=== PATIENT | female | born 1970 | race Caucasian/White ===

== ENCOUNTER → 2016-09-20 | Outpatient (CLI) | payer BC ==
--- NOTE | 2016-09-20 15:41 | P.HPBAR ---
Bariatric H&P - History & Physicial H&P Date: 09/20/16 History & Physicial: Visit/CC: Band Adjustment fluid taken ot for vacation Patient initial contact: Initial weight: 108.862 kg Initial weight in pounds: 240.00 Height: 5 ft 1 in Initial BMI: 45.3 Last weight: Current weight: 68.096 kg Current weight in pounds: 150.00 Current BMI: 28.3 [place] body weight (based on NIH guidelines): 47.627 kg Excess body weight loss: 66.6% The patient is a 46 year-old F who presents for Bariatric Assessment. The patient presents for LAP-BAND follow-up. She is going to [facility] in several weeks. She was to have the fluid removed for band. She has not been seen in 5 years. She is maintained approximately 100 pound weight loss since her LAP- BAND surgery. Past Medical History Past Medical History: No Reported History History of Any Multi-Drug Resistant Organisms: None Reported Past Surgical History: Bariatric Surgery, Section, Tubal Ligation Additional Past Surgical History / Comment(s): lap band 2010 (?), x1, Past Anesthesia/Blood Transfusion Reactions: No Reported Reaction Additional Past Anesthesia/Blood Transfusion Reaction / Comm: no problems with anesthesia, no hx of blood transfusion Past Psychological History: No Psychological Hx Reported Smoking Status: Never smoker Past Alcohol Use History: Rare Past Drug Use History: None Reported - Past Family History Mother Family Medical History: Congestive Heart Failure (CHF), COPD Additional Family Medical History / Comment(s): at age 60 from CHF Surgical - Exam Vital Signs Temp Pulse Resp BP 98.1 F 76 16 154/73 09/20/16 15:28 09/20/16 15:28 09/20/16 15:28 09/20/16 15:28 - General well developed, no distress - Eyes PERRL - ENT normal pinna - Neck no masses - Respiratory normal expansion - Cardiovascular Rhythm: regular - Abdomen Abdomen: soft Bariatric Assessment & Plan Plan: The patient's LAP-BAND was empty. 6.5 mL removal LAP-BAND. She'll follow-up after her vacation in approximately a month. Bariatric Checklist Checklist: Plan: Checklist: EGD: 1. Hiatal hernia: 2. H. Pylori: HgbA1c: Vitamin D: Smoking: Never smoker Primary care physician referral: Psychiatry clearance: Cardiology clearance: Sleep study: Diet journal: VTE risk score: VTE risk level: Rehab needs at discharge:
[2016-09-20 15:42] VITALS: BP 154/73; PULSE 76; RESP 16; TEMP 98.1; BMI 28.3
== END | disposition home or self-care (01) ==
LOC: BARWHC3 15:01
PROVIDERS: ATTEND Surgery
DX: Z48.815 Encounter for surgical aftercare following surgery on the digestive system (principal); Z98.84 Bariatric surgery status; Z68.28 Body mass index [BMI] 28.0-28.9, adult
CPT/HCPCS: 99212

== ENCOUNTER 2017-09-11 13:22 | Inpatient (IN) | payer BC ==
[2017-09-11] MEDS ORDERED: MORPHINE SULFATE 5 MG/ML SYRINGE IV STA (13:42)
[2017-09-11] MEDS ORDERED: RX INFO: IV CONTRAST WAS GIVEN 1 EACH MISC MISCELLANE PRN (13:42)
[2017-09-11] MEDS ORDERED: SODIUM CHLORIDE 0.9% 1,000 ML IV STA (13:42)
[2017-09-11] MEDS ORDERED: IOHEXOL 350 MG/ML 25 ML BOTTLE (ORAL USE) PO PRN (13:42)
--- NOTE | 2017-09-11 13:45 | ED ---
General Adult HPI - General Chief complaint: Abdominal Pain Stated complaint: abdominal pain Time Seen by Provider: 09/11/17 13:38 Source: patient, family, RN notes reviewed Mode of arrival: ambulatory Limitations: no limitations - History of Present Illness Initial comments: Patient is a pleasant 47-year-old female presenting to the emergency department complaining of abdominal discomfort. Onset of symptoms was yesterday. Discomfort has progressed and worsened since that time. Discomfort is mostly the lower mid abdomen however does radiate somewhat towards the sides. Patient did have some urinary frequency yesterday. No dysuria. No frequency today. No fevers. No nausea vomiting. No constipation or diarrhea. Discomfort is moderate to severe. No history of similar symptoms previously. Patient does have a lap band. Patient did have the fluid drained out of it several months ago. - Related Data Home Medications Medication Instructions Recorded Confirmed Budesonide/Formoterol Fumarate 2 puff INHALATION RT-BID 09/16/16 09/11/17 [Symbicort 160-4.5 Mcg Inhaler] Phentermine HCl [Adipex-P] 37.5 mg PO QAM 09/16/16 09/11/17 Allergies Allergy/AdvReac Type Severity Reaction Status Date / Time No Known Allergies Allergy Verified 09/11/17 13:52 Review of Systems ROS Statement: Those systems with pertinent positive or pertinent negative responses have been documented in the HPI. ROS Other: All systems not noted in ROS Statement are negative. Constitutional: Denies: fever Eyes: Denies: eye pain ENT: Denies: ear pain Respiratory: Denies: dyspnea Cardiovascular: Denies: chest pain Endocrine: Denies: fatigue Gastrointestinal: Reports: abdominal pain. Denies: vomiting, diarrhea, constipation Genitourinary: Reports: frequency. Denies: dysuria Musculoskeletal: Reports: back pain Skin: Denies: rash Neurological: Denies: weakness Past Medical History Past Medical History: Asthma History of Any Multi-Drug Resistant Organisms: None Reported Past Surgical History: Bariatric Surgery, Section, Tubal Ligation Additional Past Surgical History / Comment(s): lap band 2010 , x1, Past Anesthesia/Blood Transfusion Reactions: No Reported Reaction Additional Past Anesthesia/Blood Transfusion Reaction / Comment(s): no problems with anesthesia, no hx of blood transfusion Past Psychological History: No Psychological Hx Reported Smoking Status: Never smoker Past Alcohol Use History: None Reported Past Drug Use History: None Reported - Past Family History Mother Family Medical History: Congestive Heart Failure (CHF), COPD Additional Family Medical History / Comment(s): at age 60 from CHF General Exam Limitations: no limitations General appearance: alert, in no apparent distress Head exam: Present: atraumatic Eye exam: Present: normal appearance, PERRL ENT exam: Present: normal oropharynx Neck exam: Present: normal inspection Respiratory exam: Present: normal lung sounds bilaterally Cardiovascular Exam: Present: regular rate, normal rhythm Expanded Peripheral pulses: 2+: Dorsalis Pedis (R), Dorsalis Pedis (L) GI/Abdominal exam: Present: soft, tenderness (Mild suprapubic tenderness), normal bowel sounds. Absent: distended, guarding, rebound, rigid, pulsatile mass Extremities exam: Present: normal inspection Neurological exam: Present: alert Psychiatric exam: Present: normal affect, normal mood Skin exam: Present: normal color Course Vital Signs 09/11/17 09/11/17 13:27 14:52 Temperature 96.4 F L 98.3 F Pulse Rate 78 85 Respiratory 18 18 Rate Blood Pressure 133/68 165/81 O2 Sat by Pulse 100 100 Oximetry - Reevaluation(s) Reevaluation #1: 09/11/17 15:54 Patient does not meet sepsis criteria. Medical Decision Making - Medical Decision Making Patient reevaluated and resting comfortably in bed. Case was discussed with Dr. Fontanez who will consult. Case was also discussed with Dr. boykin, who will admit for Dr. lane. Patient states she has had a tubal ligation previously. - Lab Data Result diagrams: 09/11/17 14:02 09/11/17 14:02 Lab Results 09/11/17 09/11/17 09/11/17 Range/Units 14:02 14:02 14:02 WBC 13.1 H (3.8-10.6) k/uL RBC 4.58 (3.80-5.40) m/uL Hgb 10.1 L (11.4-16.0) gm/dL Hct 34.7 (34.0-46.0) % MCV 75.8 L (80.0-100.0) fL MCH 22.2 L (25.0-35.0) pg MCHC 29.2 L (31.0-37.0) g/dL RDW 18.0 H (11.5-15.5) % Plt Count 373 (150-450) k/uL Neutrophils % 80 % Lymphocytes % 13 % Monocytes % 4 % Eosinophils % 2 % Basophils % 0 % Neutrophils # 10.4 H (1.3-7.7) k/uL Lymphocytes # 1.7 (1.0-4.8) k/uL Monocytes # 0.5 (0-1.0) k/uL Eosinophils # 0.3 (0-0.7) k/uL Basophils # 0.0 (0-0.2) k/uL Hypochromasia Marked Anisocytosis Slight Microcytosis Slight PT (9.0-12.0) sec INR (<1.2) APTT (22.0-30.0) sec Sodium 139 (137-145) mmol/L Potassium 4.0 (3.5-5.1) mmol/L Chloride 102 (98-107) mmol/L Carbon Dioxide 26 (22-30) mmol/L Anion Gap 11 mmol/L BUN 9 (7-17) mg/dL Creatinine 0.75 (0.52-1.04) mg/dL Est GFR (MDRD) Af Amer >60 (>60 ml/min/1.73 sqM) Est GFR (MDRD) Non-Af >60 (>60 ml/min/1.73 sqM) Glucose 64 L (74-99) mg/dL Calcium 9.1 (8.4-10.2) mg/dL Total Bilirubin 0.2 (0.2-1.3) mg/dL AST 16 (14-36) U/L ALT 24 (9-52) U/L Alkaline Phosphatase 74 (38-126) U/L Total Protein 7.0 (6.3-8.2) g/dL Albumin 3.8 (3.5-5.0) g/dL Amylase 66 (30-110) U/L Lipase 95 (23-300) U/L Urine Color Urine Appearance (Clear) Urine pH (5.0-8.0) Ur Specific Perley (1.001-1.035) Urine Protein (Negative) Urine Glucose (UA) (Negative) Urine Ketones (Negative) Urine Blood (Negative) Urine Nitrite (Negative) Urine Bilirubin (Negative) Urine Urobilinogen (<2.0) mg/dL Ur Leukocyte Esterase (Negative) Urine RBC (0-5) /hpf Urine WBC (0-5) /hpf Urine WBC Clumps (None) /hpf Ur Squamous Epith Cells (0-4) /hpf Urine Bacteria (None) /hpf Urine Mucus (None) /hpf Urine HCG, Qual Not Detected (Not Detectd) 09/11/17 09/11/17 Range/Units 14:02 14:02 WBC (3.8-10.6) k/uL RBC (3.80-5.40) m/uL Hgb (11.4-16.0) gm/dL Hct (34.0-46.0) % MCV (80.0-100.0) fL MCH (25.0-35.0) pg MCHC (31.0-37.0) g/dL RDW (11.5-15.5) % Plt Count (150-450) k/uL Neutrophils % % Lymphocytes % % Monocytes % % Eosinophils % % Basophils % % Neutrophils # (1.3-7.7) k/uL Lymphocytes # (1.0-4.8) k/uL Monocytes # (0-1.0) k/uL Eosinophils # (0-0.7) k/uL Basophils # (0-0.2) k/uL Hypochromasia Anisocytosis Microcytosis PT 9.6 (9.0-12.0) sec INR 1.0 (<1.2) APTT 22.7 (22.0-30.0) sec Sodium (137-145) mmol/L Potassium (3.5-5.1) mmol/L Chloride (98-107) mmol/L Carbon Dioxide (22-30) mmol/L Anion Gap mmol/L BUN (7-17) mg/dL Creatinine (0.52-1.04) mg/dL Est GFR (MDRD) Af Amer (>60 ml/min/1.73 sqM) Est GFR (MDRD) Non-Af (>60 ml/min/1.73 sqM) Glucose (74-99) mg/dL Calcium (8.4-10.2) mg/dL Total Bilirubin (0.2-1.3) mg/dL AST (14-36) U/L ALT (9-52) U/L Alkaline Phosphatase (38-126) U/L Total Protein (6.3-8.2) g/dL Albumin (3.5-5.0) g/dL Amylase (30-110) U/L Lipase (23-300) U/L Urine Color Yellow Urine Appearance Turbid H (Clear) Urine pH 6.0 (5.0-8.0) Ur Specific Perley 1.016 (1.001-1.035) Urine Protein 3+ H (Negative) Urine Glucose (UA) Negative (Negative) Urine Ketones Negative (Negative) Urine Blood Moderate H (Negative) Urine Nitrite Positive H (Negative) Urine Bilirubin Negative (Negative) Urine Urobilinogen <2.0 (<2.0) mg/dL Ur Leukocyte Esterase Large H (Negative) Urine RBC 17 H (0-5) /hpf Urine WBC >182 H (0-5) /hpf Urine WBC Clumps Many H (None) /hpf Ur Squamous Epith Cells 7 H (0-4) /hpf Urine Bacteria Many H (None) /hpf Urine Mucus Moderate H (None) /hpf Urine HCG, Qual (Not Detectd) - Radiology Data Radiology results: report reviewed (Computed tomography scan shows possible ileus or early small bowel obstruction.) Disposition Clinical Impression: Urinary tract infection, Small bowel obstruction Disposition: ADMITTED IP TO THIS [facility] Referrals: Henri House MD [Primary Care Provider] - 1-2 days Decision Time: 15:54
[2017-09-11 14:20] LABS: Anisocytosis Slight; Basophils % (A) 0 %; Eosinophils # (A) 0.3 k/uL (0-0.7); Eosinophils % (A) 2 %; HCT 34.7 % (34.0-46.0); HGB 10.1 gm/dL (11.4-16.0); Hypochromasia Marked; Lymphocytes # (A) 1.7 k/uL (1.0-4.8); Lymphocytes % (A) 13 %; MCH 22.2 pg (25.0-35.0); MCHC 29.2 g/dL (31.0-37.0); MCV 75.8 fL (80.0-100.0); Mean Platelet Volume 7.2; Microcytosis Slight; Monocytes # (A) 0.5 k/uL (0-1.0); Monocytes % (A) 4 %; Neutrophils # (A) 10.4 k/uL (1.3-7.7); Neutrophils % (A) 80 %; Platelet Count 373 k/uL (150-450); RBC 4.58 m/uL (3.80-5.40); WBC 13.1 k/uL (3.8-10.6)
[2017-09-11 14:21] LABS: Appearance,Urine Turbid (Clear); Bacteria,Urine Many /hpf; Bilirubin,Urine Negative (Negative); Blood,Urine Moderate (Negative); Color,Urine Yellow; Glucose,Urine (UA) Negative (Negative); Ketones,Urine Negative (Negative); Leukocyte Esterase,Urine Large (Negative); Mucus,Urine Moderate /hpf; Nitrite,Urine Positive (Negative); Protein,Urine 3+ (Negative); RBC,Urine 17 /hpf (0-5); Specific Gravity,Urine 1.016 (1.001-1.035); Squamous Epithelial Cell,Urine 7 /hpf (0-4); Urobilinogen,Urine <2.0 mg/dL (<2.0); WBC,Urine >182 /hpf (0-5)
[2017-09-11 14:26] LABS: Partial Thromboplastin Time 22.7 sec (22.0-30.0); Prothrombin Time 9.6 sec (9.0-12.0)
[2017-09-11 14:33] LABS: ALT 24 U/L (9-52); AST 16 U/L (14-36); Albumin 3.8 g/dL (3.5-5.0); Alkaline Phosphatase 74 U/L (38-126); Amylase 66 U/L (30-110); Anion Gap 11 mmol/L; Blood Urea Nitrogen 9 mg/dL (7-17); Calcium 9.1 mg/dL (8.4-10.2); Carbon Dioxide 26 mmol/L (22-30); Chloride 102 mmol/L (98-107); Glucose 64 mg/dL (74-99); Lipase 95 U/L (23-300); Sodium 139 mmol/L (137-145); Total Bilirubin 0.2 mg/dL (0.2-1.3)
[2017-09-11] MEDS ORDERED: cefTRIAXone IN SWFI 1,000 MG/10 ML SYRINGE IVP STA (14:41)
--- NOTE | 2017-09-11 15:11 | CT ---
EXAMINATION TYPE: CT abdomen pelvis w con DATE OF EXAM: 09/11/2017 HISTORY: Abdominal pain CT DLP: 1010.6mGycm Automated Exposure Control for Dose Reduction was Utilized. CONTRAST: CT scan of the abdomen and pelvis is performed with IV Contrast, patient injected with 100 mL of Omni paque 300. COMPARISON: None. FINDINGS: LUNG BASES: No significant abnormality is appreciated. LIVER/GB: No significant abnormality is appreciated. No cholelithiasis. PANCREAS: No significant abnormality is seen. No ductal dilatation. SPLEEN: No significant abnormality is seen. No splenomegaly. ADRENALS: No significant abnormality is seen. 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 There is uroepithelia l thickening within the left renal pelvis likely reactive as it is adjacent to the minimally dilated left mid abdominal loops of small bowel. This is seen on series 3 image 33. No hydronephrosis. The kn ees enhance symmetrically. BOWEL: Gastric lap band is seen at the gastroesophageal junction appears appropriately placed, satisf actory in position. No proximal esophageal dilation. The stomach is nondistended although there is ci rcumferential gastric thickening of the rugae up to 1.4 cm. Mild small bowel dilatation of the left u pper quadrant involving the proximal jejunum. This measures up to 3.5 cm and likely represents ileus. Decrease in caliber without focal beaking is seen within the left midabdomen on series 3 image 39 th rough 42. UTERUS/ADNEXA: Horseshoe-shaped density structure near the right fallopian tube may represent a surgi sara clip or alternatively calcification within the ovary. The appendix is thought to be coiled adjace nt to the cecum superior to this. Uterus is bulky in size and somewhat heterogenous, possibly relatin g to underlying uterine leiomyomas. None are well visualized or circumscribed on this exam. Follicula r changes are seen in the ovaries. LYMPH NODES: No greater than 1cm abdominal or pelvic lymph nodes are appreciated. OSSEOUS STRUCTURES: Osseous structures are intact. Sclerotic foci are seen within the pelvis and lumb ar spine, likely bone islands. IMPRESSION: 1. Mildly dilated loops of small bowel within the left mid abdomen in the involving the proximal jeju num with decreased caliber in the left mid abdomen without focal beaking to suggest transition point or total collapse of the more distal bowel loops. Therefore ileus or incomplete or early small bowel obstruction are favored. 2. Horseshoe shaped density around the right ovary. Correlate for surgical history of fallopian tube ligation. If no corresponding surgical history this could represent an ovarian calcification and poss ibly a dermoid. Pelvic ultrasound could be performed for further evaluation. 3. Unremarkable placement of the gastric lap band although there is diffuse rugal fold thickening of the gastric body, fundus and antrum most commonly relating to gastritis..
[2017-09-11] MEDS ORDERED: MORPHINE SULFATE 2 MG/ML SYRINGE IV PRN (15:54)
[2017-09-11] MEDS ORDERED: NALOXONE 0.4 MG/ML 1 ML VIAL IV PRN (15:54)
[2017-09-11 17:00] VITALS: BMI 34.0
[2017-09-11] MEDS: SODIUM CHLORIDE 0.9% 1,000 ML IV SCH (17:11)
--- NOTE | 2017-09-11 20:19 | HP ---
HISTORY AND PHYSICAL DATE OF ADMISSION: 09/11/17 PRESENT COMPLAINT: Lower abdominal pain. HISTORY OF PRESENTING COMPLAINT: Pleasant 47 -year-old patient of Dr. House. The patient has a history of asthma, stable. The patient last night started noticing lower abdominal discomfort. There was no nausea, vomiting. No obvious fever. Last bowel movement was yesterday. The patient this morning, actually had pancakes. Continued to have lower abdominal pain and decided to come in. Normally has a bowel movement every day or every other day. In the ER exam of the abdomen per CT scan was questioning bowel obstruction. Hence patient admitted for the same. Also found to have UTI. REVIEW OF SYSTEMS: Constitutional: Tired. HEENT none. Respiratory: Baseline occasional wheezing. Cardiovascular none. Gastrointestinal as above. Genitourinary as above. Musculoskeletal none. Dermatological and hematologic, lymphatic none. Psychiatry none. Neurological none. PAST MEDICAL HISTORY: Asthma. PAST SURGICAL HISTORY: Bariatric surgery, tubal ligation, lap banding 2009. SOCIAL HISTORY: Does not smoke or drink alcohol. FAMILY HISTORY: Congestive heart failure, COPD. HOME MEDICATIONS: Adipex 37.5 p.o. daily and Symbicort 160/4.5, 2 puffs b.i.d. ALLERGIES: None. PHYSICAL EXAMINATION: Vital signs on presentation: Temperature 96.4, pulse 70, respiratory 18, blood pressure 133/68, pulse ox 100% on room air. General appearance: Well built, BMI 34. Lying in bed, not in distress. Eyes: Pupils equal. Conjunctivae normal. HEENT: Oral cavity normal. Neck JVD not raised. Mass not palpable. Respiratory effort. LUNGS: Diminished breath sounds. Cardiovascular 1st and 2nd sounds normal. No edema. Abdomen: Some lower abdominal mild tenderness. No guarding, rigidity. Liver and spleen not palpable. Bowel sounds are present. Lymphatics: No lymph nodes palpable in the neck and axilla. PSYCHIATRY: Alert and oriented x3. Mood and affect normal. Neurological: Pupils equal. Cranial nerves grossly intact. Power and sensation grossly intact. INVESTIGATIONS: White count 13.1, hemoglobin 10.1, MCV, 35.8, potassium 4.0. BUN and creatinine is normal. UA positive for nitrites, leukoesterase, WBCs. CT scan of the abdomen and pelvis shows a gastric lap band, mild small bowel dilation for left upper quadrant. ASSESSMENT: 1. Acute cystitis/urinary tract infection with lower abdominal tenderness. 2. Possible early small-bowel ileus because of the latter. 3. Moderate persistent asthma. 4. Abnormal radiological finding in the right adnexa. PLAN: Patient is put on IV ceftriaxone. Give the patient clear liquids. No nausea, vomiting. General surgery was consulted. Will also get a ACCOUNT RELATIONSHIP MANAGER opinion in view of the CT scan finding of the right adnexa. Care was discussed with the patient. Questions were answered. The patient will be put on bronchodilators. Copy to Dr. House. MMMAIKOLL / IJN: [id number] /
[2017-09-11] MEDS: BUDESONIDE 0.5 MG/2 ML NEBU INHALATION SCH (20:27)
[2017-09-11] MEDS: ALBUTEROL NEBULIZED 2.5 MG/3 ML INHALATION SCH (20:27)
[2017-09-11] MEDS: ENOXAPARIN 40 MG/0.4 ML SYRINGE SQ SCH (23:53)
[2017-09-11] MEDS: cefTRIAXone IN SWFI 1,000 MG/10 ML SYRINGE IVP SCH (23:54)
[2017-09-12 07:11] LABS: Anisocytosis Slight; Basophils % (A) 0 %; Eosinophils # (A) 0.3 k/uL (0-0.7); Eosinophils % (A) 3 %; HCT 31.3 % (34.0-46.0); HGB 8.9 gm/dL (11.4-16.0); Hypochromasia Marked; Lymphocytes # (A) 2.1 k/uL (1.0-4.8); Lymphocytes % (A) 24 %; MCH 21.8 pg (25.0-35.0); MCHC 28.4 g/dL (31.0-37.0); MCV 76.6 fL (80.0-100.0); Mean Platelet Volume 6.7; Microcytosis Slight; Monocytes # (A) 0.4 k/uL (0-1.0); Monocytes % (A) 5 %; Neutrophils # (A) 5.7 k/uL (1.3-7.7); Neutrophils % (A) 65 %; Platelet Count 335 k/uL (150-450); RBC 4.08 m/uL (3.80-5.40); RDW 16.5 % (11.5-15.5); WBC 8.8 k/uL (3.8-10.6)
--- NOTE | 2017-09-12 08:12 | XR ---
EXAMINATION TYPE: XR abdomen 2V DATE OF EXAM: 09/12/2017 CLINICAL DATA: 47-year-old female questionable small bowel obstruction, follow-up exam, [facility] COMPARISON: CT 09/11/2017 FINDINGS: Lung bases are clear. A lap band device is present. Scattered colonic air is present throughout with mild stool on the right. No dilated small bowel loop s or differential air-fluid levels are seen. Left-sided pelvic phleboliths. IMPRESSION: The overall bowel gas pattern at this time is nonobstructive. Scattered colonic air and stool are pre sent without any differential air-fluid levels. No free air.
[2017-09-12] MEDS: BUDESONIDE 0.5 MG/2 ML NEBU INHALATION SCH ×2 (08:23→20:13)
[2017-09-12] MEDS: ALBUTEROL NEBULIZED 2.5 MG/3 ML INHALATION SCH ×4 (08:24→20:13)
--- NOTE | 2017-09-12 08:29 | P.OBCN ---
History of Present Illness Consult date: 09/12/17 Requesting physician: Gabriel Conner Reason for consult: ovarian cyst Chief complaint: Abdominal pain History of present illness: This is a 47-year-old female that presented to the emergency department with complaints of abdominal pain. CAT scan was obtained and a horseshoe density was noted on the ovary via CAT scan. Patient states she did have a tubal ligation about 20 years ago after her was completed with Dr. Templeton. She did have an ultrasound done this morning per my request which on initial review of the images to me reveals a simple right ovarian cyst. Pt states her menses are regular q month with a heavy flow. she notes she has on occasion skipped a month. Review of Systems Constitutional: Reports fatigue, Denies chills, Denies fever Gastrointestinal: Reports abdominal pain Genitourinary: Reports dysuria Menstruation: Reports period heavy Past Medical History Past Medical History: Asthma History of Any Multi-Drug Resistant Organisms: None Reported Past Surgical History: Bariatric Surgery, Section, Tubal Ligation Additional Past Surgical History / Comment(s): lap band 2010 , x1, Past Anesthesia/Blood Transfusion Reactions: No Reported Reaction Additional Past Anesthesia/Blood Transfusion Reaction / Comm: no problems with anesthesia, no hx of blood transfusion Past Psychological History: No Psychological Hx Reported Smoking Status: Never smoker Past Alcohol Use History: None Reported Past Drug Use History: None Reported - Past Family History Mother Family Medical History: Congestive Heart Failure (CHF), COPD Additional Family Medical History / Comment(s): at age 60 from CHF Medications and Allergies Home Medications Medication Instructions Recorded Confirmed Type Budesonide/Formoterol Fumarate 2 puff INHALATION RT-BID 09/16/16 09/11/17 History [Symbicort 160-4.5 Mcg Inhaler] Phentermine HCl [Adipex-P] 37.5 mg PO QAM 09/16/16 09/11/17 History Allergies Allergy/AdvReac Type Severity Reaction Status Date / Time No Known Allergies Allergy Verified 09/11/17 13:52 Exam Osteopathic Statement: *. No significant issues noted on an osteopathic structural exam other than those noted in the History and Physical/Consult. - Vital Signs Vital signs: Vital Signs Temp Pulse Pulse Resp BP BP Pulse Ox 09/12/17 07:00 98.4 F 71 16 136/78 96 09/12/17 06:21 84 16 09/12/17 03:12 16 09/12/17 01:50 98.3 F 84 16 130/77 100 09/11/17 20:43 82 09/11/17 20:29 80 09/11/17 16:15 98.5 F 82 18 155/75 100 09/11/17 14:52 98.3 F 85 18 165/81 100 09/11/17 13:27 96.4 F L 78 18 133/68 100 Intake and Output 09/11/17 09/12/17 09/12/17 22:59 06:59 14:59 Other: Voiding Method Toilet Toilet Weight 81.647 kg Results Result Diagrams: 09/12/17 06:43 09/11/17 14:02 Abnormal Lab Results - Last 24 Hours (Table) 09/11/17 09/11/17 09/11/17 Range/Units 14:02 14:02 14:02 WBC 13.1 H (3.8-10.6) k/uL Hgb 10.1 L (11.4-16.0) gm/dL Hct (34.0-46.0) % MCV 75.8 L (80.0-100.0) fL MCH 22.2 L (25.0-35.0) pg MCHC 29.2 L (31.0-37.0) g/dL RDW 18.0 H (11.5-15.5) % Neutrophils # 10.4 H (1.3-7.7) k/uL Glucose 64 L (74-99) mg/dL Urine Appearance Turbid H (Clear) Urine Protein 3+ H (Negative) Urine Blood Moderate H (Negative) Urine Nitrite Positive H (Negative) Ur Leukocyte Esterase Large H (Negative) Urine RBC 17 H (0-5) /hpf Urine WBC >182 H (0-5) /hpf Urine WBC Clumps Many H (None) /hpf Ur Squamous Epith Cells 7 H (0-4) /hpf Urine Bacteria Many H (None) /hpf Urine Mucus Moderate H (None) /hpf 09/12/17 Range/Units 06:43 WBC (3.8-10.6) k/uL Hgb 8.9 L (11.4-16.0) gm/dL Hct 31.3 L (34.0-46.0) % MCV 76.6 L (80.0-100.0) fL MCH 21.8 L (25.0-35.0) pg MCHC 28.4 L (31.0-37.0) g/dL RDW 16.5 H (11.5-15.5) % Neutrophils # (1.3-7.7) k/uL Glucose (74-99) mg/dL Urine Appearance (Clear) Urine Protein (Negative) Urine Blood (Negative) Urine Nitrite (Negative) Ur Leukocyte Esterase (Negative) Urine RBC (0-5) /hpf Urine WBC (0-5) /hpf Urine WBC Clumps (None) /hpf Ur Squamous Epith Cells (0-4) /hpf Urine Bacteria (None) /hpf Urine Mucus (None) /hpf Microbiology - Last 24 Hours (Table) 09/11/17 14:02 Urine Culture - Preliminary Urine,Voided Assessment and Plan (1) Ovarian cyst Narrative/Plan: Will await final read of the ultrasound that was done this morning. And further recommendations to follow if necessary. Most likely this is something that can be followed up as an outpatient. This is discussed with the patient this am and she states understanding and will Fu with Dr. Templeton for continued care. Current Visit: Yes Status: Acute Code(s): N83.209 - UNSPECIFIED OVARIAN CYST , UNSPECIFIED SIDE SNOMED Code(s): 75056254 (2) Small bowel obstruction Current Visit: Yes Status: Acute Code(s): K56.609 - UNSP INTESTNL OBST, UNSP TO PARTIAL VERSUS COMPLETE OBST SNOMED Code(s): 305578373 (3) Urinary tract infection Current Visit: Yes Status: Acute Code(s): N39.0 - URINARY TRACT INFECTION, SITE NOT SPECIFIED SNOMED Code(s): 38285338
--- NOTE | 2017-09-12 08:46 | US ---
EXAMINATION TYPE: US transvaginal DATE OF EXAM: 09/12/2017 COMPARISON: CT 09/11/2017 CLINICAL HISTORY: 47-year-old female density of right ovary found on CT. Abnormal CT, patient admitte d for abdominal pain and possible bowel obstruction TECHNIQUE: Transvaginal (TV) Date of LMP: 08/29/2017 Findings: Uterus: Anteverted measuring 13.9 x 7.4 x 7.6 cm. Heterogeneous echotexture with cervical nabothian cysts. A more heterogeneous area along the anterior uterine fundus measures 3.3 x 4.3 x 5.0 cm, possi ble focal fibroid. Endometrial Stripe: 1.5 cm, upper limits of normal which correspond to the late secretory phase. Right Ovary: 3.6 x 3.0 x 2.8 cm with a 30 x 25 x 24 mm cysts that appears relatively simple in appea genesis. Left ovary cannot be visualized. No evident adnexal abnormality or cul-de-sac free fluid. No suspicious calcification identified. CLINICAL ASSOC NOTES: Abnormality seen on CT unable to be visualized by US IMPRESSION: 1. Possible focal fibroid measuring 5 cm along the anterior uterine fundus. 2. Endometrial stripe thickening to the upper limits of normal (1.5 cm), should correspond to the lat e secretory phase of the menstrual cycle. 3. Left ovary could not be visualized. 4. Right ovary shows a 3.0 cm dominant follicle or functional cyst. The questioned abnormality on CT could not be identified.
[2017-09-12] MEDS ORDERED: PANTOPRAZOLE 40 MG/10 ML VIAL IV SCH (09:00)
[2017-09-12] MEDS: cefTRIAXone IN SWFI 1,000 MG/10 ML SYRINGE IVP SCH ×2 (10:10→19:58)
[2017-09-12] MEDS: ACETAMINOPHEN TAB 325 MG TAB PO PRN ×2 (10:44→22:29)
--- NOTE | 2017-09-12 11:07 | P.GSCN ---
<Tere Leos - Last Filed: 09/12/17 10:53> History of Present Illness Consult date: 09/12/17 History of present illness: 47-year-old female seen for surgical eval at the request of the attending for abdominal pain. CAT scan of the abdomen pelvis obtained in the emergency room showed mildly dilated loops of small bowel possible ileus or incomplete early small bowel obstruction. Patient gives a history of having a lap band surgery done in 2009. presented on the day of admission to the emergency room with a chief complaint of developing abdominal discomfort. stated there was no nausea or vomiting. Did not have fever chills. Last bowel movement was a day before. Patient stated the incident occurred after she was eating pancakes. Patient states she normally has a bowel movement every day. Has not had prior episodes of abdominal pain like this in the past. Also noted in the emergency room urinalysis suggestive of a UTI. Currently on exam patient states there is no abdominal pain passing gas but has not had a bowel movement. Abdominal x- ray done this morning scattered stool present no free air noted no dilated small bowel loops patient is not certain if she has ever had a colonoscopy or an EGD in the past Additionally patient has been followed by OVERHEAD IRRIGATOR. Ultrasound done shows evidence of a right ovarian cyst Past medical history asthma. Past surgical history of , tubal ligation , LAP-BAND Review of Systems Essentially unremarkable except as mentioned in the present illness Past Medical History Past Medical History: Asthma History of Any Multi-Drug Resistant Organisms: None Reported Past Surgical History: Bariatric Surgery, Section, Tubal Ligation Additional Past Surgical History / Comment(s): lap band 2010 , x1, Past Anesthesia/Blood Transfusion Reactions: No Reported Reaction Additional Past Anesthesia/Blood Transfusion Reaction / Comm: no problems with anesthesia, no hx of blood transfusion Past Psychological History: No Psychological Hx Reported Smoking Status: Never smoker Past Alcohol Use History: None Reported Past Drug Use History: None Reported - Past Family History Mother Family Medical History: Congestive Heart Failure (CHF), COPD Additional Family Medical History / Comment(s): at age 60 from CHF Medications and Allergies Home Medications Medication Instructions Recorded Confirmed Type Budesonide/Formoterol Fumarate 2 puff INHALATION RT-BID 09/16/16 09/11/17 History [Symbicort 160-4.5 Mcg Inhaler] Phentermine HCl [Adipex-P] 37.5 mg PO QAM 09/16/16 09/11/17 History Allergies Allergy/AdvReac Type Severity Reaction Status Date / Time No Known Allergies Allergy Verified 09/11/17 13:52 Surgical - Exam Vital Signs Temp Pulse Resp BP Pulse Ox 96.4 F L 78 18 133/68 100 09/11/17 13:27 09/11/17 13:27 09/11/17 13:27 09/11/17 13:27 09/11/17 13:27 GENERAL APPEARANCE: 47-year-old female patient is alert, oriented, in no acute distress. Chief complaint this morning headache VITAL SIGNS: Reviewed HEENT: Head is normocephalic and atraumatic. Pupils are equal and reactive. The nares are patent. Oropharynx is clear without lesions. NECK: Supple without lymphadenopathy. Traches midline. HEART: S1, S2. Regular rate and rhythm. No murmur noted denying chest pain LUNGS: No crackles or wheezes are heard. On room air adequate air entry ABDOMEN: Soft, mild tenderness to the bilateral lower abdominal wall nondistended with good bowel sounds. No peritoneal signs. No palpable organomegaly or masses. Reports no nausea vomiting states passing gas no stool urinating no difficulty states abdominal discomfort has resolved EXTREMITIES: Normal skin color and turgor. No cyanosis, rash, ulceration, clubbing or edema. Radial pedal pulses are 2/4 bilaterally. NEUROLOGICAL: No focal deficits. Strength and sensation are grossly intact. Results - Labs 09/12/17 06:43 09/11/17 14:02 Abnormal Lab Results - Last 24 Hours (Table) 09/11/17 09/11/17 09/11/17 Range/Units 14:02 14:02 14:02 WBC 13.1 H (3.8-10.6) k/uL Hgb 10.1 L (11.4-16.0) gm/dL Hct (34.0-46.0) % MCV 75.8 L (80.0-100.0) fL MCH 22.2 L (25.0-35.0) pg MCHC 29.2 L (31.0-37.0) g/dL RDW 18.0 H (11.5-15.5) % Neutrophils # 10.4 H (1.3-7.7) k/uL Glucose 64 L (74-99) mg/dL Urine Appearance Turbid H (Clear) Urine Protein 3+ H (Negative) Urine Blood Moderate H (Negative) Urine Nitrite Positive H (Negative) Ur Leukocyte Esterase Large H (Negative) Urine RBC 17 H (0-5) /hpf Urine WBC >182 H (0-5) /hpf Urine WBC Clumps Many H (None) /hpf Ur Squamous Epith Cells 7 H (0-4) /hpf Urine Bacteria Many H (None) /hpf Urine Mucus Moderate H (None) /hpf 09/12/17 Range/Units 06:43 WBC (3.8-10.6) k/uL Hgb 8.9 L (11.4-16.0) gm/dL Hct 31.3 L (34.0-46.0) % MCV 76.6 L (80.0-100.0) fL MCH 21.8 L (25.0-35.0) pg MCHC 28.4 L (31.0-37.0) g/dL RDW 16.5 H (11.5-15.5) % Neutrophils # (1.3-7.7) k/uL Glucose (74-99) mg/dL Urine Appearance (Clear) Urine Protein (Negative) Urine Blood (Negative) Urine Nitrite (Negative) Ur Leukocyte Esterase (Negative) Urine RBC (0-5) /hpf Urine WBC (0-5) /hpf Urine WBC Clumps (None) /hpf Ur Squamous Epith Cells (0-4) /hpf Urine Bacteria (None) /hpf Urine Mucus (None) /hpf Microbiology - Last 24 Hours (Table) 09/11/17 14:02 Urine Culture - Preliminary Urine,Voided Diabetes panel 09/11/17 Range/Units 14:02 Sodium 139 (137-145) mmol/L Potassium 4.0 (3.5-5.1) mmol/L Chloride 102 (98-107) mmol/L Carbon Dioxide 26 (22-30) mmol/L BUN 9 (7-17) mg/dL Creatinine 0.75 (0.52-1.04) mg/dL Glucose 64 L (74-99) mg/dL Calcium 9.1 (8.4-10.2) mg/dL AST 16 (14-36) U/L ALT 24 (9-52) U/L Alkaline Phosphatase 74 (38-126) U/L Total Protein 7.0 (6.3-8.2) g/dL Albumin 3.8 (3.5-5.0) g/dL Calcium panel 09/11/17 Range/Units 14:02 Calcium 9.1 (8.4-10.2) mg/dL Albumin 3.8 (3.5-5.0) g/dL Pituitary panel 09/11/17 Range/Units 14:02 Sodium 139 (137-145) mmol/L Potassium 4.0 (3.5-5.1) mmol/L Chloride 102 (98-107) mmol/L Carbon Dioxide 26 (22-30) mmol/L BUN 9 (7-17) mg/dL Creatinine 0.75 (0.52-1.04) mg/dL Glucose 64 L (74-99) mg/dL Calcium 9.1 (8.4-10.2) mg/dL Adrenal panel 09/11/17 Range/Units 14:02 Sodium 139 (137-145) mmol/L Potassium 4.0 (3.5-5.1) mmol/L Chloride 102 (98-107) mmol/L Carbon Dioxide 26 (22-30) mmol/L BUN 9 (7-17) mg/dL Creatinine 0.75 (0.52-1.04) mg/dL Glucose 64 L (74-99) mg/dL Calcium 9.1 (8.4-10.2) mg/dL Total Bilirubin 0.2 (0.2-1.3) mg/dL AST 16 (14-36) U/L ALT 24 (9-52) U/L Alkaline Phosphatase 74 (38-126) U/L Total Protein 7.0 (6.3-8.2) g/dL Albumin 3.8 (3.5-5.0) g/dL Assessment and Plan Assessment: Physical exam Present on admission abdominal pain possibly due to an early small bowel obstruction History of a lap band bariatric surgery for weight loss 2009 Present on admission UTI symptomatic Moderate persistent asthma CAT scan of the abdomen pelvis obtained in the emergency room show gastric lap band with mild small bowel dilatation possible early small bowel obstruction Obesity BMI 34 CAT scan abdomen and pelvis ovarian cyst right ovary OVERHEAD IRRIGATOR following Plan IV fluid for hydration Pain control DVT and GI prophylaxis No evidence of an acute surgical abdomen at this time Will follow surgical course closely addressing issues as they arise Continue clear liquid diet Defer to the attending for further medical issues When medically stable patient would benefit from a colonoscopy could be arranged in the outpatient setting follow-up surgical visit Consult dictated for Dr. vance The above impression and plan of care have been discussed and directed by signing physician. Tere Leos nurse practitioner acting as scribe for signing physician. <Apolinar Vance - Last Filed: 09/12/17 15:31> Surgical - Exam Vital Signs Temp Pulse Resp BP Pulse Ox 96.4 F L 78 18 133/68 100 09/11/17 13:27 09/11/17 13:27 09/11/17 13:27 09/11/17 13:27 09/11/17 13:27 Results - Labs 09/12/17 06:43 09/11/17 14:02 Abnormal Lab Results - Last 24 Hours (Table) 09/12/17 Range/Units 06:43 Hgb 8.9 L (11.4-16.0) gm/dL Hct 31.3 L (34.0-46.0) % MCV 76.6 L (80.0-100.0) fL MCH 21.8 L (25.0-35.0) pg MCHC 28.4 L (31.0-37.0) g/dL RDW 16.5 H (11.5-15.5) % Microbiology - Last 24 Hours (Table) 09/11/17 14:02 Urine Culture - Preliminary Urine,Voided Assessment and Plan Plan: The patient feels better. She's had flatus. She wishes to go home. On exam her lesser stable. Her abdomen soft. Patient may be discharged home per medicine. She'll follow-up with myself as outpatient.
--- NOTE | 2017-09-12 17:05 | PN ---
PROGRESS NOTE DATE OF SERVICE: 09/12/17. ATTENDING NOTE: Patient seen and examined by me. I discussed with nurse practitioner, Nerisparmjit. Patient admitted with acute cystitis. Has passed flatus. No bowel movement. PHYSICAL EXAMINATION: On examination, afebrile, pulse 71, respiratory rate 16, blood pressure 130/78. ABDOMEN: Soft, nontender. Bowel sounds are present. INVESTIGATION: White count 8.8, hemoglobin 8.9. Cultures are pending. ASSESSMENT: 1. Acute cystitis, urinary tract infection with some clinical response. 2. Early small-bowel ileus. Patient has had flatus but no actual bowel movement. PLAN: ENTRY LEVEL MACHINE OPERATOR is the final determination of . The patient is encouraged to ambulate. I am hoping once the patient has a bowel movement she can then go home. PRUDENCIO / NICKIEN: [id number] /
[2017-09-12] MEDS: SODIUM CHLORIDE 0.9% 1,000 ML IV SCH ×2 (17:22→22:42)
[2017-09-12] MEDS: PATIENT'S OWN MED (Phentermine Hcl [Adipex-P] 37.5 MG) PO SCH (17:23)
--- NOTE | 2017-09-12 19:51 | P.PN ---
Progress Note - Text Progress Note Date: 09/12/17 DATE OF SERVICE: 09/12/2017 PRESENTING COMPLAINT: Lower abdominal pain HISTORY OF PRESENT ILLNESS: 47-year-old female who noticed to have she was having lower abdominal discomfort no nausea no vomiting no obvious fever. Last bowel movement was yesterday. Pain persisted throughout the day and patient decided to come in. Imaging in the emergency department revealed possible bowel obstruction admitted for the same also found to have a UTI. INTERVAL HISTORY: 09/12/2017: Lying in bed appears comfortable. No acute overnight events, no further nausea and vomiting PROOF MACHINE OPERATOR SUPERVISOR evaluated the patient. Surgical ASSISTANT FLOOR COVERING PRINTER evaluated the patient advanced her diet. Tolerating her diet of clear liquids. Walking around in the room. States her pain is much improved. Has not yet had a bowel movement. No longer has any abdominal pain anxious to go home. REVIEW OF SYSTEMS: Done for constitutional ,cardiovascular, GI, pulmonary with relevant findings as above. CURRENT MEDICATIONS Tylenol, Ventolin, Pulmicort, Rocephin, Lovenox, Narcan, normal saline. PHYSICAL EXAM VITAL SIGNS: Temperature 98.4, pulse 71, respiratory rate 16, blood pressure 136/78, oxygen saturation 96% GENERAL APPEARANCE: Lying in bed, not in distress. HEENT: Normocephalic, Pupils equal. Conjunctiva normal. JVD not raised. Mass not palpable.: RESPIRATORY: Respiratory effort normal. Lungs diminished to auscultation. CARDIOVASCULAR: First and second sounds normal. No edema. ABDOMEN: Soft. Liver and spleen not palpable. No tenderness. No mass palpable. PSYCHIATRY: Alert and oriented x3. Mood and affect normal. INVESTIGATIONS: LABS: Hemoglobin 8.9, Transvaginal ultrasound: Possible focal fibroid measuring 5 cm along the anterior uterine fundus, and the medial stripe thickening to the upper limits of normal ASSESSMENT: -Acute cystitis/urinary tract infection with lower abdominal tenderness, improving -Possible early bowel ileus because of the latter, improving -Moderate persistent asthma. -Abnormal radiologic finding in the right adnexa PLAN: Continue on IV ceftriaxone tolerating clear liquids no nausea or vomiting at this point. General surgery is signed off the case and PROOF MACHINE OPERATOR SUPERVISOR recommended outpatient follow-up. Encouraged patient to be up and about discharge planning for the next 24 hours,provided the patient is able to move her bowels and plan of care discussed with the patient bedside and she is in agreement. We'll follow closely. ASSISTANT FLOOR COVERING PRINTER statement: Patient was seen and examined by nurse practitioner Radha Richard and all elements of the case discussed with attending Dr. Mcfarland
[2017-09-12] MEDS: ENOXAPARIN 40 MG/0.4 ML SYRINGE SQ SCH (19:58)
[2017-09-13] MEDS: SODIUM CHLORIDE 0.9% 1,000 ML IV SCH ×2 (00:37→05:38)
[2017-09-13] MEDS: BUDESONIDE 0.5 MG/2 ML NEBU INHALATION SCH (08:09)
[2017-09-13] MEDS: ALBUTEROL NEBULIZED 2.5 MG/3 ML INHALATION SCH ×2 (08:09→11:58)
[2017-09-13] MEDS: PATIENT'S OWN MED (Phentermine Hcl [Adipex-P] 37.5 MG) PO SCH (08:54)
[2017-09-13] MEDS: cefTRIAXone IN SWFI 1,000 MG/10 ML SYRINGE IVP SCH (08:57)
[2017-09-13 09:31] VITALS: RESP 16; TEMP 97.6
[2017-09-13 12:03] VITALS: BP 143/82
[2017-09-13 12:09] VITALS: PULSE 78
--- NOTE | 2017-09-13 22:35 | DS ---
DISCHARGE SUMMARY DATE OF ADMISSION: 09/11/2017. DATE OF DISCHARGE: 09/13/2017 FINAL DIAGNOSES: 1. Acute cystitis. 2. Urinary tract infection. 3. Possibly early small bowel ileus. 4. Moderate persistent asthma. 5. Possible focal fibroid in the uterus. HOSPITAL COURSE: This patient presented with lower abdominal pain felt to be from cystitis. Urine culture did confirm E coli. The patient had early small bowel obstruction that actually resolved. Today patient tolerated diet, had a bowel movement; up and about. On examination, lungs are clear. Abdomen is soft, nontender. CONSULTATIONS: 1. Dr. Lizama from General Surgery. 2. Dr. Mcgarry from [facility]. She will see the patient as an outpatient. Care was discussed with the patient. DISCHARGE MEDICATIONS: 1. Symbicort 160/4.5 two puffs b.i.d. 2. Adipex-P 37.5 p.o. daily. 3. Ceftin 500 mg p.o. b.i.d.; 4 tablets. Follow up with Dr. Templeton in 2 weeks, Dr. House on 09/15/2017, Dr. Lizama on 09/20/2017. MMODL / IJN: [id number] /
== END 2017-09-13 16:26 | disposition home or self-care (01) | DRG 389 ==
LOC: EC 13:22 → 3SUR 15:54
PROVIDERS: ADMIT Hospitalist; ATTEND Hospitalist
DX: K56.7 Ileus, unspecified (principal); N30.00 Acute cystitis without hematuria; J45.40 Moderate persistent asthma, uncomplicated; N83.291 Other ovarian cyst, right side; D25.9 Leiomyoma of uterus, unspecified; Z79.51 Long term (current) use of inhaled steroids; Z79.899 Other long term (current) drug therapy; Z98.84 Bariatric surgery status; Z82.49 Family history of ischemic heart disease and other diseases of the circulatory system
CPT/HCPCS: 36415; 74019; 74177; 76830; 80053; 81001; 81025; 82150; 83690; 85025; 85610; 85730; 87077; 87086; 87186; 94640; 96361; 96374; 96375; 99285

== ENCOUNTER → 2018-10-16 | Outpatient (CLI) | payer BC ==
[2018-10-16 14:10] VITALS: BP 153/88; PULSE 80; RESP 16; TEMP 98.2; BMI 38.0
--- NOTE | 2018-10-23 16:10 | P.HPBAR ---
Bariatric H&P - History & Physicial H&P Date: 10/16/18 History & Physicial: Visit/CC: BAND FILL Patient initial contact: Initial weight: 108.862 kg Initial weight in pounds: 240.00 Height: 5 ft 1 in Initial BMI: 45.3 Last weight: Current weight: 91.172 kg Current weight in pounds: 201.00 Current BMI: 38.0 [place] body weight (based on NIH guidelines): 47.627 kg Excess body weight loss: 28.8% The patient is a 48 year-old F who presents for Bariatric Assessment. Patient presents today for lab band follow up. She is requesting a fill of her band. Past Medical History Past Medical History: Asthma History of Any Multi-Drug Resistant Organisms: None Reported Past Surgical History: Bariatric Surgery, Section, Tubal Ligation Additional Past Surgical History / Comment(s): lap band 2009 , x1, Past Anesthesia/Blood Transfusion Reactions: No Reported Reaction Additional Past Anesthesia/Blood Transfusion Reaction / Comm: no problems with anesthesia, no hx of blood transfusion Smoking Status: Never smoker - Past Family History Mother Family Medical History: Congestive Heart Failure (CHF), COPD Additional Family Medical History / Comment(s): at age 60 from CHF Surgical - Exam Vital Signs Temp Pulse Resp BP 98.2 F 80 16 153/88 10/16/18 14:08 10/16/18 14:08 10/16/18 14:08 10/16/18 14:08 - General well developed, no distress - Eyes PERRL - ENT normal pinna - Neck no masses - Respiratory normal expansion - Cardiovascular Rhythm: regular - Abdomen Abdomen: soft, non tender Bariatric Assessment & Plan Plan: Patient's lap band was adjusted. She had 3 mL added to her band. She is able to water without difficulty. She'll follow-up in 4 weeks. Bariatric Checklist Checklist: Plan: Checklist: EGD: 1. Hiatal hernia: 2. H. Pylori: HgbA1c: Vitamin D: Smoking: Never smoker Primary care physician referral: [facility] Psychiatry clearance: Cardiology clearance: Sleep study: Diet journal: VTE risk score: VTE risk level: Rehab needs at discharge:
== END | disposition home or self-care (01) ==
LOC: BARWHC3 13:29
PROVIDERS: ATTEND Surgery
DX: Z46.51 Encounter for fitting and adjustment of gastric lap band (principal); Z98.84 Bariatric surgery status; Z98.51 Tubal ligation status; Z98.890 Other specified postprocedural states
CPT/HCPCS: 99212

== ENCOUNTER 2022-06-11 12:23 | Emergency (ER) | payer BC, OTHER ==
[2022-06-11 12:27] VITALS: RESP 20
--- NOTE | 2022-06-11 13:42 | ED ---
General Adult HPI - General Chief complaint: Fever Stated complaint: Fever Time Seen by Provider: 06/11/22 13:20 Source: patient Mode of arrival: ambulatory Limitations: no limitations - History of Present Illness Initial comments: Patient is a 52-year-old female presents to the emergency room with complaints of intermittent fevers over the last week that have been responsive to Tylenol and/or Motrin but reports quick return after medication wears off. She states that her T-max over the last week is 102.4. She is currently afebrile with no antipyretics taken today thus far. She reports other symptoms of intermittent numbness and tingling and cold feeling to her toes and fingertips that approved with a warm bath; she is not having the sensation at this time. She does also report an increase in chronic cough, generalized malaise and dec reased appetite without any nausea vomiting or diarrhea. She reports taking 2 at home COVID test both of which were negative. She has a past medical history significant for asthma. She has been taking her Symbicort and utilizing albuterol nebulized treatments. She denies any significant shortness of breath at this time. She has taken her blood pressure a few times at home and has noted elevation. She has a past medical history significant for asthma as stated above but denies any hypertensive history. - Related Data Home Medications Medication Instructions Recorded Confirmed Budesonide/Formoterol Fumarate 2 puff INHALATION RT-BID 09/16/16 06/11/22 [Symbicort 160-4.5 Mcg Inhaler] Albuterol Nebulized [Ventolin 2.5 mg INHALATION RT-QID PRN 06/11/22 06/11/22 Nebulized] Previous Rx's Medication Instructions Recorded Sulfamethox-Tmp 800-160Mg [Bactrim 1 tab PO Q12HR 5 Days #10 tab 06/11/22 DS 800-160 mg] Allergies Allergy/AdvReac Type Severity Reaction Status Date / Time No Known Allergies Allergy Verified 06/11/22 14:17 Review of Systems ROS Statement: Those systems with pertinent positive or pertinent negative responses have been documented in the HPI. ROS Other: All systems not noted in ROS Statement are negative. Past Medical History Past Medical History: Asthma History of Any Multi-Drug Resistant Organisms: None Reported Past Surgical History: Bariatric Surgery, Section, Tubal Ligation Additional Past Surgical History / Comment(s): lap band 2010 , x1, Past Anesthesia/Blood Transfusion Reactions: No Reported Reaction Additional Past Anesthesia/Blood Transfusion Reaction / Comment(s): no problems with anesthesia, no hx of blood transfusion Past Psychological History: No Psychological Hx Reported Smoking Status: Never smoker Past Alcohol Use History: None Reported Past Drug Use History: None Reported - Past Family History Mother Family Medical History: Congestive Heart Failure (CHF), COPD Additional Family Medical History / Comment(s): at age 60 from CHF General Exam Limitations: no limitations General appearance: alert, in no apparent distress Head exam: Present: atraumatic, normocephalic, normal inspection Eye exam: Present: normal appearance, PERRL, EOMI. Absent: scleral icterus, c onjunctival injection, periorbital swelling ENT exam: Present: normal exam Neck exam: Present: normal inspection, lymphadenopathy (Shotty) Respiratory exam: Present: normal lung sounds bilaterally. Absent: respiratory distress, wheezes, rales, rhonchi, stridor Cardiovascular Exam: Present: regular rate, normal rhythm, normal heart sounds. Absent: systolic murmur, diastolic murmur, rubs, gallop, clicks GI/Abdominal exam: Present: soft, normal bowel sounds. Absent: distended, tenderness, guarding, rebound, rigid Extremities exam: Present: normal inspection, full ROM, normal capillary refill. Absent: tenderness, pedal edema, joint swelling, calf tenderness Back exam: Present: normal inspection Neurological exam: Present: alert, oriented X3, CN II-XII intact Psychiatric exam: Present: normal affect, normal mood Skin exam: Present: warm, dry, intact, normal color. Absent: rash Course Vital Signs 06/11/22 12:25 Temperature 98 F Pulse Rate 99 Respiratory 20 Rate Blood Pressure 152/87 O2 Sat by Pulse 98 Oximetry Medical Decision Making - Medical Decision Making 52-year-old female presenting to the emergency room with complaints of fevers over the last week. Currently afebrile. Also with associated occasional pronounced-like phenomenon to extremities improved with warm bath. An increase in chronic bath without increase in shortness of breath along with generalized malaise. Home test 2 for Covid negative. No indication for diagnostic imaging as she is not currently short of breath to Or hypoxic. Will check laboratory studies for CBC, lactic acid and CMP along with COVID and influenza swabs. No indication for any medication administration at this time. Will monitor. CBC showed see shows mild leukocytosis with WBC 11.4. CMP shows Mildly elevated creatinine BUN normal. Urinalysis reveals significant urinary tract infection with moderate amount of bacteria, WBCs greater than 182, leukocyte esterase large and positive nitrates. Findings discussed with patient and spouse at bedside. No indication IV medication or other medications at this time. Will discharge home on oral Bactrim with continued use of Tylenol and ibuprofen as needed for fevers. Encouraged good hydration. Case discussed with Dr. Sheikh - Lab Data Result diagrams: 06/11/22 13:44 06/11/22 13:44 Lab Results 06/11/22 06/11/22 06/11/22 Range/Units 13:44 13:44 13:44 WBC 11.4 H (3.8-10.6) k/uL RBC 4.63 (3.80-5.40) m/uL Hgb 13.9 (11.4-16.0) gm/dL Hct 42.3 (34.0-46.0) % MCV 91.4 (80.0-100.0) fL MCH 29.9 (25.0-35.0) pg MCHC 32.7 (31.0-37.0) g/dL RDW 12.4 (11.5-15.5) % Plt Count 280 (150-450) k/uL MPV 8.6 Neutrophils % 74 % Lymphocytes % 16 % Monocytes % 6 % Eosinophils % 1 % Basophils % 0 % Neutrophils # 8.5 H (1.3-7.7) k/uL Lymphocytes # 1.8 (1.0-4.8) k/uL Monocytes # 0.7 (0-1.0) k/uL Eosinophils # 0.1 (0-0.7) k/uL Basophils # 0.1 (0-0.2) k/uL Sodium 133 L (137-145) mmol/L Potassium 4.2 (3.5-5.1) mmol/L Chloride 95 L (98-107) mmol/L Carbon Dioxide 26 (22-30) mmol/L Anion Gap 12 mmol/L BUN 14 (7-17) mg/dL Creatinine 1.10 H (0.52-1.04) mg/dL Est GFR (CKD-EPI)AfAm 67 (>60 ml/min/1.73 sqM) Est GFR (CKD-EPI)NonAf 58 (>60 ml/min/1.73 sqM) Glucose 106 H (74-99) mg/dL Plasma Lactic Acid Cheikh 1.3 (0.7-2.0) mmol/L Calcium 8.3 L (8.4-10.2) mg/dL Total Bilirubin 0.6 (0.2-1.3) mg/dL AST 21 (14-36) U/L ALT 20 (4-34) U/L Alkaline Phosphatase 123 (38-126) U/L Total Protein 6.6 (6.3-8.2) g/dL Albumin 3.5 (3.5-5.0) g/dL Urine Color Urine Appearance (Clear) Urine pH (5.0-8.0) Ur Specific [place] (1.001-1.035) Urine Protein (Negative) Urine Glucose (UA) (Negative) Urine Ketones (Negative) Urine Blood (Negative) Urine Nitrite (Negative) Urine Bilirubin (Negative) Urine Urobilinogen (<2.0) mg/dL Ur Leukocyte Esterase (Negative) Urine RBC (0-5) /hpf Urine WBC (0-5) /hpf Ur Squamous Epith Cells (0-4) /hpf Urine Bacteria (None) /hpf Coronavirus (PCR) (Not Detectd) Influenza Type A RNA (Not Detectd) Influenza Type B (PCR) (Not Detectd) 06/11/22 06/11/22 06/11/22 Range/Units 13:44 13:44 13:48 WBC (3.8-10.6) k/uL RBC (3.80-5.40) m/uL Hgb (11.4-16.0) gm/dL Hct (34.0-46.0) % MCV (80.0-100.0) fL MCH (25.0-35.0) pg MCHC (31.0-37.0) g/dL RDW (11.5-15.5) % Plt Count (150-450) k/uL MPV Neutrophils % % Lymphocytes % % Monocytes % % Eosinophils % % Basophils % % Neutrophils # (1.3-7.7) k/uL Lymphocytes # (1.0-4.8) k/uL Monocytes # (0-1.0) k/uL Eosinophils # (0-0.7) k/uL Basophils # (0-0.2) k/uL Sodium (137-145) mmol/L Potassium (3.5-5.1) mmol/L Chloride (98-107) mmol/L Carbon Dioxide (22-30) mmol/L Anion Gap mmol/L BUN (7-17) mg/dL Creatinine (0.52-1.04) mg/dL Est GFR (CKD-EPI)AfAm (>60 ml/min/1.73 sqM) Est GFR (CKD-EPI)NonAf (>60 ml/min/1.73 sqM) Glucose (74-99) mg/dL Plasma Lactic Acid Cheikh (0.7-2.0) mmol/L Calcium (8.4-10.2) mg/dL Total Bilirubin (0.2-1.3) mg/dL AST (14-36) U/L ALT (4-34) U/L Alkaline Phosphatase (38-126) U/L Total Protein (6.3-8.2) g/dL Albumin (3.5-5.0) g/dL Urine Color Light Yellow Urine Appearance Cloudy H (Clear) Urine pH 6.5 (5.0-8.0) Ur Specific [place] 1.007 (1.001-1.035) Urine Protein 1+ H (Negative) Urine Glucose (UA) Negative (Negative) Urine Ketones Negative (Negative) Urine Blood Moderate H (Negative) Urine Nitrite Positive H (Negative) Urine Bilirubin Negative (Negative) Urine Urobilinogen <2.0 (<2.0) mg/dL Ur Leukocyte Esterase Large H (Negative) Urine RBC 1 (0-5) /hpf Urine WBC >182 H (0-5) /hpf Ur Squamous Epith Cells 1 (0-4) /hpf Urine Bacteria Moderate H (None) /hpf Coronavirus (PCR) Not Detected (Not Detectd) Influenza Type A RNA Not Detected (Not Detectd) Influenza Type B (PCR) Not Detected (Not Detectd) Disposition Clinical Impression: UTI (urinary tract infection) Disposition: HOME SELF-CARE Condition: Stable Instructions (If sedation given, give patient instructions): Fever in Adults (ED), Urinary Tract Infection in Women (DC) Additional Instructions: Please complete antibiotic prescription as prescribed. Please drink plenty of fluids. Please utilize Tylenol or ibuprofen [id number] as needed for fevers and pain. Please follow-up with your primary care provider. Please return to the Emergency Department if symptoms worsen or any other concerns. Prescriptions: Sulfamethox-Tmp 800-160Mg [Bactrim DS 800-160 mg] 1 tab PO Q12HR 5 Days #10 tab Is patient prescribed a controlled substance at d/c from ED?: No Referrals: Henri House MD [Primary Care Provider] - 1-2 days Time of Disposition: 15:17
[2022-06-11 13:54] LABS: Basophils # (A) 0.1 k/uL (0-0.2); Basophils % (A) 0 %; Eosinophils # (A) 0.1 k/uL (0-0.7); Eosinophils % (A) 1 %; HCT 42.3 % (34.0-46.0); HGB 13.9 gm/dL (11.4-16.0); Lymphocytes # (A) 1.8 k/uL (1.0-4.8); Lymphocytes % (A) 16 %; MCH 29.9 pg (25.0-35.0); MCHC 32.7 g/dL (31.0-37.0); MCV 91.4 fL (80.0-100.0); Mean Platelet Volume 8.6; Monocytes # (A) 0.7 k/uL (0-1.0); Monocytes % (A) 6 %; Neutrophils # (A) 8.5 k/uL (1.3-7.7); Neutrophils % (A) 74 %; Platelet Count 280 k/uL (150-450); RBC 4.63 m/uL (3.80-5.40); RDW 12.4 % (11.5-15.5); WBC 11.4 k/uL (3.8-10.6)
[2022-06-11 14:06] LABS: Albumin 3.5 g/dL (3.5-5.0); Calcium 8.3 mg/dL (8.4-10.2); Potassium 4.2 mmol/L (3.5-5.1); Total Bilirubin 0.6 mg/dL (0.2-1.3); Total Protein 6.6 g/dL (6.3-8.2)
[2022-06-11 14:59] LABS: Appearance,Urine Cloudy (Clear); Bacteria,Urine Moderate /hpf; Bilirubin,Urine Negative (Negative); Blood,Urine Moderate (Negative); Color,Urine Light Yellow; Glucose,Urine (UA) Negative (Negative); Ketones,Urine Negative (Negative); Leukocyte Esterase,Urine Large (Negative); Nitrite,Urine Positive (Negative); PH, Urine 6.5 (5.0-8.0); Protein,Urine 1+ (Negative); RBC,Urine 1 /hpf (0-5); Specific Gravity,Urine 1.007 (1.001-1.035); Squamous Epithelial Cell,Urine 1 /hpf (0-4); Urobilinogen,Urine <2.0 mg/dL (<2.0); WBC,Urine >182 /hpf (0-5)
[2022-06-11] MEDS ORDERED: ACETAMINOPHEN TAB 500 MG TAB PO STA (15:56)
[2022-06-11 16:07] VITALS: BP 116/50; PULSE 75; TEMP 101.3
== END 2022-06-11 16:07 | disposition home or self-care (01) ==
LOC: EC 12:23
DX: N39.0 Urinary tract infection, site not specified (principal); J45.909 Unspecified asthma, uncomplicated; Z20.822 Contact with and (suspected) exposure to COVID-19; Z79.51 Long term (current) use of inhaled steroids
CPT/HCPCS: 36415; 80053; 81001; 83605; 85025; 87077; 87086; 87186; 87502; 87635; 99284